=== PATIENT | male | born 1965 | race Caucasian/White ===

== ENCOUNTER 2017-03-17 05:36 | Inpatient (IN) | payer MEDICARE, OTHER ==
[~2017-03-17] VITALS: Ht 182.9 cm; Wt 96.5 kg
[2017-03-17] MEDS ORDERED: LACTATED RINGERS 1,000 ML IV SCH (06:06)
[2017-03-17] MEDS ORDERED: EPINEPHRINE 1 MG/ML, 1ML ONE (06:13)
[2017-03-17] MEDS ORDERED: BUPIVACAINE/PF 0.5% ONE (06:13)
[2017-03-17] MEDS ORDERED: THROMBIN 5,000 UNIT VIAL TP ONE (06:13)
[2017-03-17] MEDS ORDERED: BACITRACIN 50,000 UNIT ONE (06:13)
[2017-03-17 06:26] VITALS: BP 122/81
[2017-03-17] MEDS ORDERED: NONE PER PT (06:26)
[2017-03-17] MEDS ORDERED: SCOPOLAMINE PATCH, 1MG PATCH.TD72 TD ONE (06:35)
[2017-03-17] MEDS ORDERED: LIDOCAINE GEL 2%, 5ML ONE (06:40)
[2017-03-17] MEDS ORDERED: MIDAZOLAM 1 MG/ML, 2ML ONE (06:41)
[2017-03-17] MEDS ORDERED: FENTANYL PF 100 MCG/2ML ONE ×2 (06:41)
[2017-03-17] MEDS ORDERED: GLYCOPYRROLATE 0.2MG/1ML, 5ML ONE ×2 (06:42→07:52)
[2017-03-17] MEDS ORDERED: NEOSTIGMINE 1 MG/ML, 10ML ONE (06:42)
[2017-03-17] MEDS ORDERED: ONDANSETRON 2MG/ML, 2ML ONE (06:42)
[2017-03-17] MEDS ORDERED: PROPOFOL 10 MG/ML, 20ML ONE (06:42)
[2017-03-17] MEDS ORDERED: ROCURONIUM 10 MG/ML ONE (06:42)
[2017-03-17] MEDS ORDERED: CEFAZOLIN 1,000 MG ONE (06:42)
[2017-03-17] MEDS ORDERED: SUCCINYLCHOLINE 20 MG/ML, 10ML ONE (06:42)
[2017-03-17] MEDS ORDERED: DEXAMETHASONE 4 MG/ML, 1ML ONE ×2 (06:42→07:16)
[2017-03-17] MEDS ORDERED: PROPOFOL 50 ML ONE ×2 (06:43→07:55)
[2017-03-17] MEDS ORDERED: LIDOCAINE-MPF 2% ,5ML ONE ×2 (06:45→07:55)
[2017-03-17] MEDS ORDERED: METOCLOPRAMIDE 5 MG/ML, 2ML ONE (07:29)
[2017-03-17] MEDS ORDERED: KETAMINE 10 MG/ML, 20ML ONE (07:29)
[2017-03-17] MEDS ORDERED: LABETALOL 5MG/ML, 20ML IV PRN (07:30)
[2017-03-17] MEDS ORDERED: MIDAZOLAM 1 MG/ML, 2ML IV PRN (07:30)
[2017-03-17] MEDS ORDERED: OXYcodone 5 MG/5 ML ORAL.SOL UDC PO PRN (07:30)
[2017-03-17] MEDS ORDERED: MEPERIDINE/PF 25MG/0.5ML IVPush PRN (07:30)
[2017-03-17] MEDS ORDERED: ONDANSETRON 2MG/ML, 2ML IVPush PRN ×2 (07:30→09:00)
[2017-03-17] MEDS ORDERED: PROMETHAZINE 25 MG/ML, 1ML IV PRN (07:30)
[2017-03-17] MEDS ORDERED: hydrALAzine 20 MG/ML, 1ML IV PRN (07:30)
[2017-03-17] MEDS ORDERED: HYDROmorphone 1 MG/ML, 1ML IV PRN (07:30)
[2017-03-17] MEDS ORDERED: DIAZEPAM 5 MG/ML, 2ML IVPush PRN (07:30)
[2017-03-17] MEDS ORDERED: ALBUTEROL/IPRATROPIUM 2.5MG/0.5MG, 3 ML NPPB PRN (07:30)
[2017-03-17] MEDS ORDERED: FENTANYL PF 100 MCG/2ML IV PRN (07:30)
[2017-03-17] MEDS ORDERED: ACETAMINOPHEN 325 MG TABLET PO PRN (07:30)
[2017-03-17] MEDS ORDERED: NALOXONE 0.4 MG/ML, 1ML ONE (08:33)
[2017-03-17] MEDS ORDERED: PHARMACY MAY ADJ FOR RENAL FX MC PRN (09:00)
[2017-03-17] MEDS ORDERED: DIPHENHYDRAMINE 50 MG/ML, 1ML IVPush PRN (09:00)
[2017-03-17] MEDS ORDERED: HYDROcodone/APAP 10/325 MG TABLET PO PRN (09:00)
[2017-03-17] MEDS ORDERED: PROMETHAZINE 25 MG/ML, 1ML IM PRN (09:00)
[2017-03-17] MEDS: SODIUM CHLORIDE FLUSH 10ML SYR IVF SCH ×2 (09:00→21:30)
[2017-03-17] MEDS ORDERED: OXYcodone/APAP 5/325MG TABLET PO PRN (09:00)
[2017-03-17] MEDS ORDERED: SENNA/DOCUSATE TABLET PO PRN (09:00)
[2017-03-17] MEDS ORDERED: METHOCARBAMOL 750 MG TABLET PO PRN (09:00)
[2017-03-17] MEDS ORDERED: BISACODYL 10 MG SUPP PR PRN (09:00)
[2017-03-17] MEDS ORDERED: morphine SULFATE 10 MG/ML, 1ML IVPush PRN (09:00)
[2017-03-17] MEDS ORDERED: ACETAMINOPHEN 650 MG SUPP PR PRN (09:00)
[2017-03-17] MEDS ORDERED: HYDROcodone/APAP 5/325 TABLET PO PRN (09:00)
[2017-03-17] MEDS ORDERED: CYCLOBENZAPRINE 10 MG TABLET PO PRN (09:00)
[2017-03-17] MEDS ORDERED: ACETAMINOPHEN 650 MG/20.3 ML UDC ONE (09:04)
[2017-03-17] MEDS: D5%-0.9% NACL+KCL 20MEQ 1,000 ML IV SCH (10:46)
[2017-03-17 13:28] VITALS: BP 104/64
[2017-03-17] MEDS: CEFAZOLIN PMX 1GM/50ML 50 ML IVPB SCH ×2 (15:06→23:22)
[2017-03-17 20:21] VITALS: BP 95/52
[2017-03-17] MEDS: ACETAMINOPHEN 325 MG TABLET PO PRN (21:30)
[2017-03-18 00:46] VITALS: BP 101/58
[2017-03-18 04:00] VITALS: BP 100/58
[2017-03-18] MEDS: D5%-0.9% NACL+KCL 20MEQ 1,000 ML IV SCH (05:00)
[2017-03-18] MEDS: ACETAMINOPHEN 325 MG TABLET PO PRN (05:31)
[2017-03-18 06:32] VITALS: BP 106/60
[2017-03-18] MEDS: SODIUM CHLORIDE FLUSH 10ML SYR IVF SCH (09:43)
[2017-03-18 09:47] VITALS: BP 117/76
[2017-03-18] MEDS ORDERED: HYDR-3240 PO (10:29)
[2017-03-18] MEDS ORDERED: ACET-1770 PO (10:30)
[2017-03-18] MEDS ORDERED: CYCL5TAB PO (10:30)
[2017-03-18] MEDS ORDERED: CEPH-368 PO (10:44)
== END 2017-03-18 11:00 | disposition home or self-care (01) | DRG 473 ==
LOC: ORIP 05:36 → 4NOR 09:52 → DCLOUNGE 03-18 10:40
PROVIDERS: ADMIT Neurological Surgery; ATTEND Neurological Surgery
PROC: 0RG10A0 Fusion of Cervical Vertebral Joint with Interbody Fusion Device, Anterior Approach, Anterior Column, Open Approach (ICD-10-PCS; 2017-03-17)
PROC: 4A11X4G Monitoring of Peripheral Nervous Electrical Activity, Intraoperative, External Approach (ICD-10-PCS; 2017-03-17)
PROC: 0RB30ZZ Excision of Cervical Vertebral Disc, Open Approach (ICD-10-PCS; principal; 2017-03-17 07:00)
DX: M48.02 Spinal stenosis, cervical region (principal); M25.78 Osteophyte, vertebrae; M50.123 Cervical disc disorder at C6-C7 level with radiculopathy
CPT/HCPCS: 72040; 93005; C1713; J0171; J0690; J1100; J2250; J2310; J2405; J2704; J2710; J3010; J3490; C1762; J0330; J2765; J3480; J7120